=== PATIENT | female | born 1995 | race Caucasian/White ===

== ENCOUNTER 2020-07-22 18:38 | Emergency (ER) | payer OTHER ==
--- NOTE | 2020-07-22 18:44 | PDOC ---
Rapid Medical Evaluation Time Seen by Provider: 07/22/20 18:43 Medical Evaluation: 07/22/20 18:43 25 year old female with R 2nd digit laceration. UTD on tetanus PE: 1cm lac to 2nd digit PIP with active bleeding Plan: Lac repair Pt to precede to ED for further eval
[2020-07-22 18:48] VITALS: BP 98/61; PULSE 79; TEMP 98.5; BMI 18.8
--- OUTSIDE RECORDS SUMMARY | 2020-07-22 18:57 | XMS ---
:1995 Author Organization [facility] Support Name Relationship Address Phone UE Unavailable Unavailable Unavailable [place] [address] Re-disclosure Warning The records that you are about to access may contain information from federally- assisted alcohol or drug abuse programs. If such information is present, then the following federally mandated warning applies: This information has been disclosed to you from records protected by federal confidentiality rules (42 CFR part 2). The federal rules prohibit you from making any further disclosure of this information unless further disclosure is expressly permitted by the written consent of the person to whom it pertains or as otherwise permitted by 42 CFR part 2. A general authorization for the release of medical or other information is NOT sufficient for this purpose. The Federal rules restrict any use of the information to criminally investigate or prosecute any alcohol or drug abuse patient.The records that you are about to access may contain highly sensitive health information, the redisclosure of which is protected by Article 27-F of the [facility] Public Health law. If you continue you may haveaccess to information: Regarding HIV / AIDS; Provided by facilities licensed or operated by the [facility] Office of Mental Health; or Provided by the [facility] Office for People With Developmental Disabilities. If such information is present, then the following [facility] mandated warning applies: This information has been disclosed to you from confidential records which are protected by state law. State law prohibits you from making any further disclosure of this information without the specific written consent of the person to whom it pertains, or as otherwise permitted by law. Any unauthorized further disclosure in violation of state law may result in a fine or mcfp sentence or both. A general authorization for the release of medical or other information is NOT sufficient authorization for further disclosure. Insurance Providers Payer name Policy type Policy ID Covered Covered republican's Policy P eleazar / Coverage republican ID relationship to [facility] ormation type ruff [facility] [id number] FIRST
--- NOTE | 2020-07-22 19:26 | PDOC ---
History of Present Illness - General Chief Complaint: Injury Stated Complaint: LACERATION Time Seen by Provider: 07/22/20 18:43 - History of Present Illness Initial Comments: 07/22/20 19:23 27-year-old female current on tetanus no comorbidities presents for evaluation of left second finger laceration while cutting a potato. Past History - Medical History Allergies/Adverse Reactions: Allergies Allergy/AdvReac Type Severity Reaction Status Date / Time No Known Allergies Allergy Verified 07/22/20 18:44 COPD: No - Reproductive History Is Patient Now?: No - Psycho-Social/Smoking History Smoking History: Never smoked Have you smoked in the past 12 months: No - Substance Abuse Hx (Audit-C & DAST Scrn) How often the patient has a drink containing alcohol: Monthly or less Number of drinks the patient has on a typical day: 1 or 2 How often the patient has six or more drinks on one occasion: Never Score: In Men: 4 or > Positive; In Women: 3 or > Positive: 1 Screen Result (Pos requires Nsg. Audit-10AR): Negative In the last yr the pt used illegal drug/Rx for NonMed reason: No Score: Yes response is considered Positive: 0 Screen Result (Positive result requires Nsg. DAST-10): Negative Review of Systems - Review of Systems Musculoskeletal: Yes: See HPI, Joint Pain *Physical Exam - Vital Signs Last Vital Signs Temp Pulse Resp BP Pulse Ox 98.5 F 79 16 98/61 100 07/22/20 18:45 07/22/20 18:45 07/22/20 18:45 07/22/20 18:45 07/22/20 18:45 - Physical Exam 07/22/20 19:23 There is a 1 cm obliquely oriented laceration on the radial aspect of the left second finger on the skin overlying the PIPJ. FDS and FDP work independently no gross sensorimotor deficits neurovascular intact. Medical Decision Making - Medical Decision Making 07/22/20 19:24 Aseptically 5 cc of lidocaine was used for digital block the wound was copiously irrigated explored to its base in a bloodless field without identification of foreign body. Copiously irrigated and sterilely prepped once again with Betadine 4 simple 4-0 Prolene sutures were used for wound closure in an interrupted fashion. Dressed bacitracin dressing was placed wound care instructions were given. I have reviewed the pathophysiology with the patient. They are in agreement with the treatment plan all questions were answered to their satisfaction. Understanding for follow-up without fail was also conveyed to the patient. Again they are in agreement. Discharge - Discharge Information Problems reviewed: Yes Clinical Impression/Diagnosis: Finger laceration Condition: Stable Disposition: HOME - Admission No - Follow up/Referral Referrals: Juan David Field MD [Staff Physician] - - Patient Discharge Instructions Additional Instructions: Please keep the dressing on and dry for the next 48 hours. After 48 hours you may remove the dressing and leave the area open to air. Tylenol Motrin as directed for pain. Return to the emergency room for worsening symptoms and without fail follow-up with orthopedic hand surgery in 2 to 3 days for a wound check. If you cannot get in with orthopedic hand surgery right return to the emergency room in 2 to 3 days for wound check. Sutures out in 10 days. You may have sutures removed either by the orthopedic hand surgeon or by the emergency room. Again wound check in 48 hours either by orthopedic hand surgery or the emergency room. Please return to the emergency room sooner if problems develop. - Post Discharge Activity
== END 2020-07-22 19:38 | disposition home or self-care (01) ==
LOC: JERFT 18:38
PROC: 0HQGXZZ Repair Left Hand Skin, External Approach (ICD-10-PCS; principal; 2020-07-22)
DX: S61.221A Laceration with foreign body of left index finger without damage to nail, initial encounter (principal)
CPT/HCPCS: 99282-25